=== PATIENT | female | born 1950 | race Caucasian/White ===

== ENCOUNTER 2016-12-05 11:11 | Emergency (ER) | payer MEDICARE, OTHER ==
[~2016-12-05] VITALS: Wt 51.5 kg
[2016-12-05] MEDS ORDERED: SOD CHLORIDE 0.9% 1,000 ML IV STA (11:40)
[2016-12-05] MEDS ORDERED: ONDANSETRON 4 MG INJ IV STA (11:40)
[2016-12-05] MEDS ORDERED: morphine 4 MG/ML VIAL IV STA (11:40)
--- NOTE | 2016-12-05 11:56 | ERD ---
ER Documentation Chief Complaint Date/Time DATE: 12/05/16 TIME: 11:51 Chief Complaint HEADACHE X2 DAYS, HX OF MIGRAINE, NAUSEA HPI 66 year old female with history of migraine headaches, recent hospitalization with colostomy bag due to severe sepsis, as well as aneurysm comes in with a headache for 2 days. Patient states that it is severe, on the top of her head , with photophobia, nausea vomiting, throbbing. She states that she is only taking [id number] medications including Tylenol, ibuprofen and Excedrin. She was previously taking amitriptyline however was discontinued after hospitalization due to syncope. While she was hospitalized T of the head revealed according to the patient and "small aneurysm" which she will be following up for clipping. She denies chest pain, shortness of breath. She does states she has had chills over the last 2 weeks. Patient is originally from [place] and is visiting [place]. ROS All systems reviewed and are negative except as per history of present illness. Medications Home Meds Active Scripts Metoclopramide Hcl* (Metoclopramide Hcl*) 10 Mg Tablet, 10 MG PO TID, #30 TAB Prov:SHEILA LI PA-C 12/05/16 Acetamin/Butalbital/Caffeine* (Fioricet*) [id number] Tab, 1 TAB PO Q6H Y for PAIN, #30 TAB Prov:SHEILA LI PA-C 12/05/16 Allergies Allergies: Coded Allergies: sumatriptan (Verified Allergy, Unknown, 12/05/16) PMhx/Soc History of Surgery: Yes (colostomy ) Hx Neurological Disorder: Yes (migraines,aneurysm) Hx Alcohol Use: No Hx Substance Use: No Hx Tobacco Use: No Smoking Status: Never smoker Physical Exam Vitals Vital Signs Date Time Temp Pulse Resp B/P Pulse Ox O2 Delivery O2 Flow Rate FiO2 12/05/16 11:15 97.9 102 18 178/94 98 Physical Exam General: Well-developed, well-nourished. The patient appears in no acute distress. HEENT: Head is normocephalic, atraumatic. No scleral icterus. Temporal arteries nontender. Pupils are equal, round, and reactive. Oral mucous membranes are moist. No pharyngeal erythema. Neck: Supple. Nontender. Lungs: Clear to auscultation. Normal air movement. Heart: Regular rate and rhythm. S1 and S2 are normal. No murmurs, gallops, or rubs. Abdomen: Soft, nontender, nondistended. Bowel sounds are normoactive. Extremities: No clubbing or cyanosis. Normal pulses. Moving extremities x 4. No weakness. Neurologic: Alert and oriented 3. No focal deficits. Cranial nerves II 12 grossly intact, speech and gait normal. Skin: Normal turgor. No rash or lesions. Result Diagram: 12/05/16 1200 12/05/16 1200 Results 24 hrs Laboratory Tests Test 12/05/16 12:00 White Blood Count 12.910^3/ul Red Blood Count 4.8210^6/ul Hemoglobin 14.8g/dl Hematocrit 43.9% Mean Corpuscular Volume 91.1fl Mean Corpuscular Hemoglobin 30.7pg Mean Corpuscular Hemoglobin Concent 33.7g/dl Red Cell Distribution Width 14.6% Platelet Count 55678^3/UL Mean Platelet Volume 8.1fl Neutrophils % 51.9% Lymphocytes % 40.1% Monocytes % 6.0% Eosinophils % 1.0% Basophils % 0.6% Nucleated Red Blood Cells % 0.0/100WBC Neutrophils # 6.710^3/ul Lymphocytes # 5.210^3/ul Monocytes # 0.810^3/ul Eosinophils # 0.110^3/ul Basophils # 0.110^3/ul Nucleated Red Blood Cells # 0.010^3/ul Urine Color YELLOW Urine Clarity CLEAR Urine pH 7.0 Urine Specific Sayner 1.014 Urine Ketones NEGATIVEmg/dL Urine Nitrite NEGATIVEmg/dL Urine Bilirubin NEGATIVEmg/dL Urine Urobilinogen NEGATIVEmg/dL Urine Leukocyte Esterase 2+Hallie/ul Urine Microscopic RBC 0/HPF Urine Microscopic WBC 1/HPF Urine Squamous Epithelial Cells FEW/HPF Urine Bacteria FEW/HPF Urine Mucus FEW/HPF Urine Hemoglobin NEGATIVEmg/dL Urine Glucose NEGATIVEmg/dL Urine Total Protein NEGATIVEmg/dl Sodium Level 135mmol/L Potassium Level 4.1mmol/L Chloride Level 100mmol/L Carbon Dioxide Level 22mmol/L Anion Gap 17 Blood Urea Nitrogen 14mg/dl Creatinine 0.69mg/dl Glucose Level 107mg/dl Calcium Level 10.6mg/dl Total Bilirubin 0.2mg/dl Direct Bilirubin 0.00mg/dl Indirect Bilirubin 0.2mg/dl Aspartate Amino Transf (AST/SGOT) 30IU/L Alanine Aminotransferase (ALT/SGPT) 38IU/L Alkaline Phosphatase 268IU/L Total Protein 9.1g/dl Albumin 5.2g/dl Globulin 3.90g/dl Albumin/Globulin Ratio 1.33 Current Medications Medications (Trade) Dose Ordered Sig/Sophia Route PRN Reason Start Time Stop Time Status Last Admin Dose Admin Sodium Chloride (NS) 1,000 ml @ 1,000 mls/hr Q1H STAT IV 12/05/16 11:40 12/05/16 12:48 DC 12/05/16 12:07 Morphine Sulfate (morphine) 4 mg ONCE STAT IV 12/05/16 11:40 12/05/16 11:43 DC 12/05/16 12:07 Ondansetron HCl (Zofran Inj) 4 mg ONCE STAT IV 12/05/16 11:40 12/05/16 11:43 DC 12/05/16 12:07 Diphenhydramine HCl (Benadryl) 25 mg ONCE ONCE IV 12/05/16 14:00 12/05/16 14:01 DC 12/05/16 14:05 Metoclopramide HCl (Reglan) 10 mg ONCE ONCE IV 12/05/16 14:00 12/05/16 14:01 DC 12/05/16 14:05 Hydromorphone HCl (Dilaudid) 1 mg ONCE STAT IV 12/05/16 14:00 12/05/16 14:02 DC 12/05/16 14:05 DIAGNOSTIC IMAGING REPORT Patient: LIEN YOUNG : 1950 Age: 66 Sex: F MR #: [id number] DOS: 12/05/16 1140 Ordering MD: SHEILA LI PA-C Location: [facility] Room/Bed: PROCEDURE: CT Brain without. CLINICAL INDICATION: Headache, history of aneurysm. TECHNIQUE: A CT of the brain was performed on multidetector high-resolution CT scanner utilizing axial sections from the skull base through the vertex without contrast. The scan was reviewed in soft tissue brain and high frequency resolution bone algorithm windows. Images were reviewed on a high- resolution PACS workstation. One or more the following does reduction techniques were utilized: Automated exposure control, adjustment of the mA/ or kV according to patient's size, or use of iterative reconstruction technique. The exam CTDI = 44.95 mGy and the DLP = 630.2 mGy-cm. COMPARISON: None available. FINDINGS: The ventricles and sulci are mildly prominent indicative of volume loss. There is no intracranial hemorrhage, mass effect or midline shift. No abnormal intra- axial or extra-axial fluid collections are seen. The garcia/white matter differentiation is preserved. There are mild scattered foci of hypoattenuation in the white matter, which are nonspecific in etiology but likely reflect chronic small vessel ischemic changes. There are mild intracranial vascular calcifications consistent with atherosclerosis. The visualized paranasal sinuses are essentially clear. IMPRESSION: 1. No acute intracranial hemorrhage, transcortical infarction or mass effect. 2. Mild intracranial atherosclerosis and chronic small vessel ischemic changes. 3. Mild generalized cerebral volume loss. 4. If clinical concern for intracranial aneurysm persists consider brain CTA. RPTAT: JJ .Lola Reyes MD, MD Date Time Electronically viewed and signed by .Lola Reyes MD, MD on 12/05/2016 13: 53 .N/ CC: SHEILA LI PA-C Procedures/MDM ED course: Patient had blood work obtained, she was given morphine 4 mg, Zofran 4 mg IV. She still continued of pain, she was given Dilaudid 1mg IV, reglan 10mg IV benadryl 25 mg IV. She was given fluid bolus of NS 1L. Medical decision making: This is a 66-year-old female coming in for headache, patient's presentation and history is most consistent with a migraine headache. She does report an aneurysm was seen on the CT scan at a different hospital, CT scan of the brain was done and was negative for intracranial hemorrhage. Labs were also obtained, unremarkable. I reviewed all findings with my attending physician Dr. Todd who agrees that the patient is stable for discharge. We controlled her pain with morphine followed by Dilaudid. She states that the Reglan helped the best with nausea, therefore she will be given a prescription for for this as well as Fioricet. All copies of labs and imaging were provided to the patient I have asked her to follow-up with her neurologist as soon as possible. Differential diagnosis includes intracranial hemorrhage, including subarachnoid, ruptured aneurysm, temporal arteritis, meningitis, encephalitis and among others. The case was reviewed and discussed with Dr. Todd who agrees with the plan of care including labs, treatment, and advanced imaging as appropriate. Departure Diagnosis: Primary Impression: Headache Condition: Good SHEILA LI PA-C Dec 05, 2016 11:56
[2016-12-05 12:15] LABS: ADD SCAN DIFF NO
[2016-12-05 12:18] LABS: ABNORMAL IP MESSAGE 1; BASOPHIL # 0.1 10^3/ul (0.0-0.1); BASOPHILS % 0.6 % (0.0-2.0); EOSINOPHILS # 0.1 10^3/ul (0.0-0.5); HEMATOCRIT 43.9 % (37.0-47.0); HEMOGLOBIN 14.8 g/dl (12.0-16.0); LYMPHOCYTES # 5.2 10^3/ul (0.8-2.9); LYMPHOCYTES % 40.1 % (15.0-51.0); MEAN CORPUSCULAR HEMOGLOBIN 30.7 pg (29.0-33.0); MEAN CORPUSCULAR HGB CONC 33.7 g/dl (32.0-37.0); MEAN CORPUSCULAR VOLUME 91.1 fl (82.0-101.0); MEAN PLATELET VOLUME 8.1 fl (7.4-10.4); MONOCYTE # 0.8 10^3/ul (0.3-0.9); NEUTROPHIL # 6.7 10^3/ul (1.6-7.5); NEUTROPHILS % 51.9 % (39.0-77.0); RED BLOOD COUNT 4.82 10^6/ul (4.20-5.40); RED CELL DISTRIBUTION WIDTH 14.6 % (11.5-14.5); WHITE BLOOD COUNT 12.9 10^3/ul (4.8-10.8)
[2016-12-05 12:39] LABS: ALBUMIN 5.2 g/dl (3.3-4.9); ALBUMIN/GLOBULIN RATIO 1.33; BILIRUBIN,INDIRECT 0.2 mg/dl (0-1.1); BILIRUBIN,TOTAL 0.2 mg/dl (0.2-1.3); CALCIUM 10.6 mg/dl (8.4-10.2); CREATININE 0.69 mg/dl (0.44-1.00); POTASSIUM 4.1 mmol/L (3.5-5.1); TOTAL PROTEIN 9.1 g/dl (6.1-8.1)
--- NOTE | 2016-12-05 12:42 | QN ---
Documentation Comment My independent concise history is headache. My pertinent physical exam findings are no acute abnormalities. The plan is laboratory workup, and CT scan of the brain and then discharge if negative. NADIYA KIMBALL MD Dec 05, 2016 12:42
[2016-12-05 12:43] LABS: ADD UMIC YES; UR ASCORBIC ACID NEGATIVE (NEGATIVE); UR BACTERIA FEW /HPF (NONE SEEN); UR BILIRUBIN (Dip) NEGATIVE (NEGATIVE); UR BLOOD (Dip) NEGATIVE (NEGATIVE); UR CLARITY CLEAR (CLEAR); UR COLOR YELLOW (YELLOW); UR GLUCOSE (Dip) NEGATIVE (NEGATIVE); UR KETONES (Dip) NEGATIVE (NEGATIVE); UR LEUKOCYTE ESTERASE (Dip) 2+ Leu/ul (NEGATIVE); UR MUCUS FEW /HPF (NONE SEEN); UR NITRITE (Dip) NEGATIVE (NEGATIVE); UR RBC 0 /HPF (0-5); UR SPECIFIC GRAVITY (Dip) 1.014 (1.003-1.030); UR SQUAMOUS EPITHELIAL CELL FEW /HPF (FEW); UR TOTAL PROTEIN (Dip) NEGATIVE (NEGATIVE); UR UROBILINOGEN (Dip) NEGATIVE (NEGATIVE)
--- NOTE | 2016-12-05 13:53 | RADRPT ---
PROCEDURE: CT Brain without. CLINICAL INDICATION: Headache, history of aneurysm. TECHNIQUE: A CT of the brain was performed on multidetector high-resolution CT scanner utilizing a xial sections from the skull base through the vertex without contrast. The scan was reviewed in sof t tissue brain and high frequency resolution bone algorithm windows. Images were reviewed on a high -resolution PACS workstation. One or more the following does reduction techniques were utilized: Aut omated exposure control, adjustment of the mA/ or kV according to patient's size, or use of iterativ e reconstruction technique. The exam CTDI = 44.95 mGy and the DLP = 630.2 mGy-cm. COMPARISON: None available. FINDINGS: The ventricles and sulci are mildly prominent indicative of volume loss. There is no intracranial h emorrhage, mass effect or midline shift. No abnormal intra-axial or extra-axial fluid collections a re seen. The garcia/white matter differentiation is preserved. There are mild scattered foci of hypoattenuation in the white matter, which are nonspecific in etiol ogy but likely reflect chronic small vessel ischemic changes. There are mild intracranial vascular calcifications consistent with atherosclerosis. The visualized paranasal sinuses are essentially mitch ar. IMPRESSION: 1. No acute intracranial hemorrhage, transcortical infarction or mass effect. 2. Mild intracranial atherosclerosis and chronic small vessel ischemic changes. 3. Mild generalized cerebral volume loss. 4. If clinical concern for intracranial aneurysm persists consider brain CTA. RPTAT: JJ .Lola Reyes MD, MD Date Time Electronically viewed and signed by .Lola Reyes MD, MD on 12/05/2016 13:53 .N/
[2016-12-05] MEDS ORDERED: METOCLOPRAMIDE 10 MG INJ IV ONE (14:00)
[2016-12-05] MEDS ORDERED: HYDROmorphONE 1 MG/ML SYG IV STA (14:00)
[2016-12-05] MEDS ORDERED: DIPHENHYDRAMINE 50 MG INJ IV ONE (14:00)
[2016-12-05] MEDS ORDERED: FIORICET PO (15:03)
[2016-12-05] MEDS ORDERED: METO10TA96 PO (15:03)
[2016-12-05 16:52] LABS: PLATELET COUNT 724 10^3/UL (140-415)
== END 2016-12-05 15:34 | disposition home or self-care (01) ==
LOC: FTE 11:11
DX: R51 Headache (principal); R11.2 Nausea with vomiting, unspecified
CPT/HCPCS: 70450; 80053; 81001; 85025; 87040; 87086; J1170; J1200; J2270; J2405; J2765; J7030; 36415; 96374; 96375